=== PATIENT | female | born 1945 | race Caucasian/White ===

== ENCOUNTER 2019-08-14 08:53 | Inpatient (IN) ==
[2019-08-08 16:29] LABS: Basophils # (Auto) 0.03 K/mcL (0.00-0.30); Basophils % (Auto) 0.4 % (0.0-2.0); Eosinophils # (Auto) 0.16 K/mcL (0.00-0.70); Eosinophils % (Auto) 2.4 % (0.0-7.0); Granulocytes % (Auto) 65.8 % (38.0-78.0); Hematocrit 47.8 % (34.1-44.9); Hemoglobin 15.5 g/dL (11.2-15.7); Lymphocytes % (Auto) 23.6 % (15.5-49.0); Mean Cell Volume 88.2 fL (80.0-100.0); Mean Corpuscular HGB Conc 32.4 g/dL (31.0-36.0); Mean Platelet Volume 11.2 fL (7.4-10.4); Monocytes # (Auto) 0.53 K/mcL (0.10-0.90); Monocytes % (Auto) 7.8 % (1.0-12.0); Platelet Count 207 K/mcL (140-440); RBC 5.42 M/mcL (3.59-5.38); Red Cell Distribution Width 13.6 % (11.5-14.5); WBC 6.8 K/mcL (4.50-11.00)
[2019-08-08 16:39] LABS: Blood Urea Nitrogen 16 mg/dl (8-23); Calcium 9.6 mg/dl (8.6-10.4); Carbon Dioxide 26 mmol/L (22-30); Chloride 100 mmol/L (96-108); Glomerular Filtration Rate 55; Glucose 92 mg/dL (70-105)
[2019-08-08 17:10] LABS: INR 1.8 (0.9-1.1); Prothrombin Time 20.4 sec (11.9-14.5)
[2019-08-08 18:26] LABS: Appearance,Urine CLEAR; Bilirubin,Urine NEG (NEG); Color,Urine YELLOW; Culture Indicated,Urine NO; Glucose,Urine (UA) NEGATIVE (NEG); Ketones,Urine NEG (NEG); Leukocyte Esterase,Urine NEG /uL (NEG); Nitrate,Urine NEG (NEG); Protein,Urine NEG (NEG); Specific Gravity,Urine 1.018 (1.000-1.035); Urine Blood NEG mg/dL (<0.03); Urobilinogen,Urine NEG (NEG)
[~2019-08-14 08:53] MED LIST: 0.9 % SODIUM CHLORIDE 9 ML, KETOROLAC 30 MG, ROPIVACAINE HCL/PF 49.5 ML, EPINEPHrine 0.... IJ SCH; CELECOXIB 200 MG CAPSULE PO SCH; IPRATROPIUM/ALBUTEROL 3 ML AMPUL.NEB NEB PRN; PREGABALIN 75 MG CAPSULE PO SCH; SCOPOLAMINE 1 PATCH PATCH TOPICAL PRN; VANCOMYCIN 1,500 MG in 0.9 % SODIUM CHLORIDE 500 ML IV SCH
[2019-08-14] MEDS ORDERED: MAGNESIUM OXIDE 400 MG TABLET PO SCH (09:00)
[2019-08-14 09:15] LABS: POC INR 1.1 (0.9-1.2); POC Pro Time 12.6 sec (11.9-14.5)
[2019-08-14] MEDS ORDERED: GENTAMICIN SULFATE 800 MG/20 ML VIAL IR ONE (10:05)
[2019-08-14] MEDS ORDERED: TRANEXAMIC ACID 1,000 MG/10 ML VIAL IV ONE (11:26)
[2019-08-14] MEDS ORDERED: PROPOFOL 200 MG/20 ML VIAL IV ONE (11:26)
[2019-08-14] MEDS ORDERED: GLYCOPYRROLATE 0.2 MG/ML VIAL IV ONE (11:26)
[2019-08-14] MEDS ORDERED: PHENYLEPHRINE 10 MG/ML VIAL IV ONE (11:26)
[2019-08-14] MEDS ORDERED: DEXAMETHASONE 10 MG/ML VIAL IV ONE (11:26)
[2019-08-14] MEDS ORDERED: ROPIVACAINE HCL/PF 30 ML VIAL IJ ONE (11:26)
[2019-08-14] MEDS ORDERED: LIDOCAINE HCL/PF 100 MG/5 ML SYRINGE IV ONE (11:26)
[2019-08-14] MEDS ORDERED: KETAMINE 100 MG/ML ML IV ONE (11:26)
[2019-08-14] MEDS ORDERED: ONDANSETRON 4 MG/2 ML VIAL IV ONE (11:26)
[2019-08-14] MEDS ORDERED: MIDAZOLAM 2 MG/2 ML VIAL IV ONE (11:26)
[2019-08-14] MEDS ORDERED: fentaNYL 100 MCG/2 ML VIAL IV PRN (12:51)
[2019-08-14] MEDS ORDERED: METHOCARBAMOL 1,000 MG/10 ML VIAL IV PRN (12:51)
[2019-08-14] MEDS ORDERED: ONDANSETRON 4 MG/2 ML VIAL IV PRN ×2 (12:51→13:01)
[2019-08-14] MEDS ORDERED: IPRATROPIUM/ALBUTEROL 3 ML AMPUL.NEB NEB PRN (12:51)
[2019-08-14] MEDS ORDERED: ACETAMINOPHEN 1,000 MG/100 ML BOTTLE IV ONE (12:51)
[2019-08-14] MEDS ORDERED: MEPERIDINE 25 MG/ML SYRINGE IV PRN (12:51)
--- NOTE | 2019-08-14 12:59 | Brief Operative Note ---
Date of procedure: 08/14/19 Pre-op diagnosis: left knee oa Post-op diagnosis: same Procedure: left total knee arthroplasty Grafts/Implants: Yes Anesthesia: spinal Complications: none Surgeon: Hector Gross Manager Copy: Christiano To Estimated blood loss (cc): 200 Tourniquet Time (Minutes): 58 Specimens Removed/Pathology: none sent Condition: stable Disposition: PACU
[2019-08-14] MEDS ORDERED: LACTATED RINGERS 1,000 ML IV SCH (13:00)
[2019-08-14] MEDS ORDERED: MAGNESIUM HYDROXIDE 30 ML ORAL.SUSP PO PRN (13:01)
[2019-08-14] MEDS ORDERED: TRANEXAMIC ACID 1,000 MG/10 ML VIAL IV SCH (13:01)
[2019-08-14] MEDS ORDERED: POLYETHYLENE GLYCOL 3350 17 GM PACKET PO PRN (13:01)
[2019-08-14] MEDS ORDERED: FLEETS ADULT ENEMA PR PRN (13:01)
[2019-08-14] MEDS ORDERED: ONDANSETRON 4 MG ODT TABLET SL PRN (13:01)
[2019-08-14] MEDS ORDERED: ACETAMINOPHEN 325 MG TABLET PO PRN (13:01)
[2019-08-14] MEDS ORDERED: BENZOCAINE/MENTHOL 1 LOZENGE PO PRN (13:01)
[2019-08-14] MEDS ORDERED: BISACODYL 10 MG SUPP.RECT PR PRN (13:01)
--- NOTE | 2019-08-14 13:01 | Discharge Summary ---
Ortho Discharge - TKA - Patient Instructions Diet: Regular Diet Activity: ambulate with assistive device, weight bearing as tolerated Total Knee Protocol: For Total Knee: Start ROM EDWIN with stationary bike or rocking chair. Work on gaining full extension of knee. Posterior dislocation precautions provided. Hip abductor strengthening and gait training instructions provided. Apply Cryocuff as instructed. Dressing Care: May shower in 2 days - Follow Up Plan Disposition: Home, Self-Care Prognosis: Good Rehab Potential: Good I certify that the patient requires SNF services: No Overall status at discharge: patient is progressing back to baseline
[2019-08-14] MEDS ORDERED: ALBUTEROL SULFATE 1 PUFF INHALER INH PRN (13:05)
[2019-08-14] MEDS ORDERED: POLYVINYL ALCOHOL OPHTH DROPS 15ML BOTTLE OU PRN ×2 (13:05)
[2019-08-14] MEDS ORDERED: VANCOMYCIN 1,000 MG in 0.9 % SODIUM CHLORIDE 250 ML IV SCH (13:15)
[2019-08-14] MEDS ORDERED: NON FORMULARY MEDICATION 1 DOSE MISCELL (Potassium 99 MG) PO SCH (13:15)
[2019-08-14] MEDS ORDERED: WARFARIN 5 MG TABLET PO ONE (14:00)
--- NOTE | 2019-08-14 14:05 | Operative Note ---
DATE OF OPERATION: 08/14/2019 PREOPERATIVE DIAGNOSIS: Degenerative joint disease, left knee. POSTOPERATIVE DIAGNOSIS: Degenerative joint disease, left knee. PROCEDURE: Left total knee arthroplasty. SURGEON: Araceli Gross M.D. PSYCH SPECIALIST SURGEON: Christiano To PA-C. This provider's expertise and technical skill were required throughout the case. The PA assisted with preoperative coordination, intraoperative retraction, wound closure, dressing and splint application, as well as postoperative documentation and care coordination. ANESTHESIA: Spinal with LMA assist. ESTIMATED BLOOD LOSS: 150 mL COMPLICATIONS: None noted. SPECIMENS REMOVED: None. DRAINS: None. TOURNIQUET TIME: 58 minutes at 300 mmHg. IMPLANTS: DePuy CMW2 gentamycin bone cement 20 grams x4 DePuy Attune femoral posterior stabilized size 5 left cemented, DePuy Attune tibia insert fixed bearing posterior stabilized size 5, 6 mm AOX, DePuy Attune tibial based fixed bearing size 4 cemented, DePuy Attune patella medialized dome 35 mm cemented AOX. INDICATIONS: The patient has had a long-standing history of worsening pain in the knee that has failed conservative treatment. Radiographs have confirmed advanced degenerative joint disease. After a long discussion about treatment options, the patient elected to proceed with a knee arthroplasty. The risks and benefits were discussed with the patient in detail including, but not limited to, the risks of anesthesia, problems with the heart or lungs related to anesthesia, infection, compromise or injury to the nerves and blood vessels, deep venous thrombosis, pulmonary embolism, pneumonia, continued pain after surgery, worsening pain or symptoms after surgery, swelling, loss of motion, instability, leg length discrepancy, and need for repeat surgery. DESCRIPTION OF PROCEDURE: The patient was seen in the pre-anesthesia waiting room where all questions were answered and the correct side and site were identified and marked. The patient was transferred to the operating room and administered the anesthetic and given pre-operative antibiotics. A time-out was then called. The extremity was prepped and draped, exsanguinated, and the tourniquet was inflated to 300 mmHg. A midline skin incision was then made with a standard medial parapatellar arthrotomy. Debridement of the menisci, ACL, and PCL was performed followed by balancing releases in the medial lateral plane. We then established intramedullary access to both the femur and tibia in a standard fashion. The femoral guide jo ann was initially placed with the distal femoral guide, pinned into place, and the distal femoral cut was performed and checked with a flat plate. We then turned our attention to the tibia. The intramedullary guide was placed with the proximal tibial cutting block. The block was appropriately positioned off the affected side, varus and valgus was checked with the extra-medullary guide, and the block was pinned into place. The proximal tibial cut was performed and the tibia was prepared for the tibial implant with appropriate rotation. The tibia, femur, and posterior compartment were debrided of osteophytes, loose bodies, and meniscal fragments We then used the gap balancing technique to balance extension with the first two cuts and good balancing was obtained with a 10 millimeter gap block. We turned our attention back to the femur and used the referencing block and implant to size appropriately. Using the gap balancing technique for the flexion space we set our rotation of the femur off the tibial cut. Anesthesia gave the patient 1 gram of Tranexamic Acid via an intravenous route. We placed the 4 in 1 cutting block and made anterior, posterior, and chamfer cuts. Box plasty cuts were then made in a standard fashion for the posterior stabilized prosthesis. We then completed osteophyte release and posterior capsule release from the posterior compartment. Trials were placed and we chose the polyethylene insert thickness that provided the best stability in all planes. With the trials in place, we did a measured resection for a resurfacing patella. We sized the patella and placed the patella trial and performed a lateral facetectomy with the saw and rongeur. Good tracking was obtained. We removed all trials, irrigated and dried all cut surfaces. We cemented the components into place including tibia, femur and patella. We placed a trial liner and held the knee in full extension with the patella compressed while the cement cured. We then removed all excess cement and placed the final polyethylene tibiofemoral component. Irrigation with 3 liters of antibiotic saline was then performed using jet-lavage. We let the tourniquet down and coagulated bleeding vessels. We injected a 100 cubic centimeter volume including Ropivacaine 49.25 cubic centimeters at 5 milligrams per cubic centimeter, Ketorolac 30 milligrams, and Epinephrine 0.5 milligrams into 100 cubic centimeters volume of normal saline. We closed the retinaculum with #2 Stratafix and 0 Vicryl. We closed the subcutaneous tissue and skin in layers out to Dermabond on the skin. A sterile pressure dressing was applied. All needle and sponge counts were correct. The patient was transferred to the recovery room in stable condition. AUGIE:kary Job ID: [id number] Doc ID: [id number] Araceli Gross MD
--- NOTE | 2019-08-14 14:31 | XRay Report ---
CLINICAL INFORMATION: Post-Op Total Knee COMPARISON: None. FINDINGS: Total knee prostheses is anatomically aligned. No osseous abnormality. Periarticular soft tissue swelling seen as expected. IMPRESSION: Negative Interpreted and Authenticated by: Hector Diez 08/14/19
[2019-08-14] MEDS: LACTATED RINGERS 1,000 ML IV SCH ×3 (14:45→21:18)
[2019-08-14] MEDS: HYDROcodone/APAP 10/325MG TABLET PO PRN ×2 (15:15→19:55)
[2019-08-14] MEDS: 0.9 % SODIUM CHLORIDE 10 ML SYRINGE IV SCH ×3 (16:17→21:24)
[2019-08-14] MEDS ORDERED: WARFARIN 5 MG TABLET PO SCH (18:00)
[2019-08-14] MEDS: METHOCARBAMOL 750 MG TABLET PO PRN (18:03)
[2019-08-14] MEDS: IPRATROPIUM/ALBUTEROL 3 ML AMPUL.NEB NEB SCH (20:23)
[2019-08-14] MEDS ORDERED: DILTIAZEM 120 MG CAP.XL.24H PO SCH (21:00)
[2019-08-14] MEDS ORDERED: SENNOSIDES 1 TABLET PO SCH (21:00)
[2019-08-14] MEDS ORDERED: ATORVASTATIN 20 MG TABLET PO SCH (21:00)
[2019-08-14] MEDS ORDERED: ASPIRIN 325 MG ENTERIC COATED TABLET PO SCH (21:00)
[2019-08-14] MEDS: DOCUSATE SODIUM 100 MG CAPSULE PO SCH (21:17)
[2019-08-14] MEDS ORDERED: VANCOMYCIN 1,500 MG in 0.9 % SODIUM CHLORIDE 500 ML IV ONE (22:00)
[2019-08-15] MEDS: HYDROcodone/APAP 10/325MG TABLET PO PRN ×3 (01:40→11:00)
[2019-08-15] MEDS: LACTATED RINGERS 1,000 ML IV SCH (05:17)
[2019-08-15] MEDS: 0.9 % SODIUM CHLORIDE 10 ML SYRINGE IV SCH (05:55)
[2019-08-15 07:27] LABS: Prothrombin Time 13.7 sec (11.9-14.5)
[2019-08-15] MEDS ORDERED: PANTOPRAZOLE 40 MG TABLET PO SCH (07:30)
[2019-08-15 07:33] LABS: Hematocrit 39.1 % (34.1-44.9); Hemoglobin 12.6 g/dL (11.2-15.7)
--- NOTE | 2019-08-15 08:04 | Orthopedic Progress Note ---
Subjective Patient information: Note initiated : 08/15/19 at 8:02 am Service Date, if different from initiated Date: [] Patient: Sisi Bolanos 74 y/o F admitted on 08/14/19 for Left Total Knee Arthroplasty. Chief Complaint: [] Interval history: doing well. pain improving Objective Vital signs: Vital Signs Temp Pulse Pulse Resp BP Pulse Ox 08/15/19 07:14 98.7 F 85 18 119/69 92 08/15/19 03:55 98.5 F 98 H 18 115/68 94 08/14/19 23:13 97.7 F 101 H 18 109/64 91 08/14/19 20:25 98 H 18 08/14/19 18:56 98.4 F 102 H 20 135/76 92 08/14/19 16:05 98 H 138/85 92 08/14/19 15:43 91 H 156/80 96 08/14/19 15:28 94 H 177/64 95 08/14/19 15:13 90 161/79 90 08/14/19 14:58 91 H 155/81 97 08/14/19 14:43 89 134/72 94 08/14/19 14:28 88 138/71 97 08/14/19 14:21 97.3 F 85 15 158/74 100 08/14/19 14:00 86 15 150/82 99 08/14/19 13:45 90 17 151/76 100 08/14/19 13:40 90 17 160/77 100 08/14/19 13:35 96 H 19 163/79 100 08/14/19 13:27 97.2 F 97 H 17 161/88 100 08/14/19 09:20 97.7 F 80 20 134/79 94 Intake and Output 08/14/19 08/15/19 08/15/19 21:59 05:59 13:59 Intake Total 1280 1900 Output Total 1751 1350 Balance -471 550 Intake: IV 460 1000 Lactated Ringers 1,000 ml @ [phone] mls/hr IV [facility] Rx#: [id number] Oral 720 900 IV - Manual Only 100 Output: Urine Catheter Amount 1450 1350 Straight 800 Void Amount 225 # of times incontinent of urine 1 Estimated Blood Loss 75 Other: Meal Dinner Percent of Meal Consumed 100% Feeding Ability Independent Urine Appearance Clear Clear Straight Clear Clear Urine Color Bright Yellow Bright Yellow Straight Bright Yellow Bright Yellow Urine Odor Normal Normal Weight 249 lb 9.6 oz Intake & Output: Intake & Output 08/14/19 08/15/19 08/15/19 21:59 05:59 13:59 Intake Total 1280 1900 Output Total 1751 1350 Balance -471 550 Weight 249 lb 9.6 oz Intake: IV 460 1000 Lactated Ringers 1,000 ml @ [phone] mls/hr IV .Q8H [facility] Rx#: [id number] Oral 720 900 IV - Manual Only 100 Output: Urine Catheter Amount 1450 1350 Straight 800 Void Amount 225 # of times incontinent of urine 1 Estimated Blood Loss 75 Other: Meal Dinner Percent of Meal Consumed 100% Feeding Ability Independent Urine Appearance Clear Clear Straight Clear Clear Urine Color Bright Yellow Bright Yellow Straight Bright Yellow Bright Yellow Urine Odor Normal Normal Incision: Yes healing Incision clean and dry: Yes Dressing: Yes clean, Yes dry, Yes intact Weight bearing status: full Neurological exam IM: Yes abnormal gait, Yes alert, Yes oriented X3, Yes motor sensory intact, Yes neurovascular intact Extremities exam IM: No calf tenderness, Yes Foot pink and warm, Yes neurovascular intact - Labs CBC & BMP: 08/15/19 05:20 08/08/19 13:55 Labs: Orthopedic Labs 08/15/19 08/14/19 08/08/19 05:20 09:09 13:55 POC PT 12.6 PT 13.7 20.4 H POC INR 1.1 INR 1.0 1.8 H 08/15/19 08/08/19 05:20 13:55 Hgb 12.6 15.5 Hct 39.1 47.8 H Assessment and Plan (1) Knee osteoarthritis pod 1 s/p tka wbat pain control dvt prophylaxis d/c planning Status: Acute
[2019-08-15] MEDS: DOCUSATE SODIUM 100 MG CAPSULE PO SCH (08:32)
[2019-08-15] MEDS ORDERED: TRIAMTERENE/HYDROCHLOROTHIAZID 1 CAP CAPSULE PO SCH (09:00)
[2019-08-15] MEDS ORDERED: FOLIC ACID 1 MG TABLET PO SCH (09:00)
[2019-08-15] MEDS ORDERED: FLUTICASONE PROPIONATE SPRAY.NAS NS SCH (09:00)
[2019-08-15] MEDS ORDERED: Budesonide/Formoterol Fumarate [Symbicort 160-4.5 MCG] Inhaler INH SCH (09:00)
[2019-08-15] MEDS: IPRATROPIUM/ALBUTEROL 3 ML AMPUL.NEB NEB SCH (09:22)
[2019-08-15] MEDS: METHOCARBAMOL 750 MG TABLET PO PRN (13:51)
[2019-08-15] MEDS ORDERED: WARFARIN 2.5 MG TABLET PO ONE (14:00)
[2019-08-15] MEDS ORDERED: WARFARIN 2.5 MG TABLET PO SCH (18:00)
[2019-08-15] MEDS ORDERED: ATORVASTATIN 20 MG TABLET PO SCH (21:00)
== END 2019-08-15 14:17 | disposition home or self-care (01) | DRG 470 ==
LOC: MEDSUR 08:53
PROVIDERS: ADMIT Orthopaedic Surgery Sports Medicine; ATTEND Orthopaedic Surgery Sports Medicine